=== PATIENT | male | born 1975 | race Caucasian/White ===

== ENCOUNTER 2018-06-27 20:21 | Emergency (ER) | payer MEDICAID ==
[2018-06-27] MEDS ORDERED: Tylenol #3 Tablet PO ONE (20:53)
--- NOTE | 2018-06-27 20:56 | ERPHSYRPT ---
- History of Present Illness Time Seen by Provider: 06/27/18 20:50 Source: patient Exam Limitations: clinical condition Patient Subjective Stated Complaint: Left foot/ankle injury Triage Nursing Assessment: Patient brought back to ED via w/c and transferred to bed per self. Patient A+O X 3. Patient's skin pink, warm and dry. Patient complains of left ankle injury after carrying a couch down stairs when left foot went in a hole causing his ankle to twist Wednesday night. Patient complains of pain 8/10 to left ankle. pedal pulse noted. Left foot outer ankle noted to be swollen, bruised and painful. Physician History: PATIENT TWISTED HIS LEFT ANKLE WHILE MOVING FURNITURE DOWN STAIRS. HAS PAIN OVER OUTER ASPECT OF LEFT ANKLE. PAIN UPON WEIGHT BEARING. Method of Injury: twisted Occurred: this afternoon Quality: constant Severity of Pain-Max: moderate Severity of Pain-Current: moderate Lower Extremities Pain: ankle: left Modifying Factors: Improves With: movement Associated Symptoms: unable to bear weight Allergies/Adverse Reactions: No Known Drug Allergies Allergy (Verified 06/27/18 20:31) Hx Tetanus, Diphtheria Vaccination/Date Given: Yes (ONE YEAR AGO) Hx Influenza Vaccination/Date Given: No Hx Pneumococcal Vaccination/Date Given: No Immunizations Up to Date: Yes - Review of Systems Constitutional: No Fever, No Chills Eyes: No Symptoms Ears, Nose, & Throat: No Symptoms Respiratory: No Cough, No Dyspnea Cardiac: No Chest Pain, No Edema, No Syncope Abdominal/Gastrointestinal: No Abdominal Pain, No Nausea, No Vomiting, No Diarrhea Genitourinary Symptoms: No Dysuria Musculoskeletal: Injury, Joint Pain, Joint Swelling, No Back Pain, No Neck Pain Skin: No Rash Neurological: No Dizziness, No Focal Weakness, No Sensory Changes Psychological: No Symptoms Endocrine: No Symptoms All Other Systems: Reviewed and Negative - Past Medical History Pertinent Past Medical History: Yes Neurological History: No Pertinent History ENT History: No Pertinent History Cardiac History: No Pertinent History Respiratory History: No Pertinent History Endocrine Medical History: No Pertinent History Musculoskeletal History: Fractures GI Medical History: No Pertinent History History: No Pertinent History Psycho-Social History: No Pertinent History Male Reproductive Disorders: No Pertinent History Other Medical History: L SHOULDER SURGERY AND FX R WRIST - Past Surgical History Past Surgical History: Yes Neuro Surgical History: No Pertinent History Cardiac: No Pertinent History Respiratory: No Pertinent History Gastrointestinal: No Pertinent History Genitourinary: No Pertinent History Musculoskeletal: Orthopedic Surgery Male Surgical History: No Pertinent History Other Surgical History: L SHOULDER SURGERY - Social History Smoking Status: Current every day smoker How long have you smoked: years Exposure to second hand smoke: Yes Drug Use: marijuana Patient Lives Alone: No - Nursing Vital Signs Nursing Vital Signs: Initial Vital Signs Temperature 99.0 F 06/27/18 20:33 Pulse Rate 100 H 06/27/18 20:33 Respiratory Rate 18 06/27/18 20:33 Blood Pressure 154/72 06/27/18 20:33 O2 Sat by Pulse Oximetry 93 L 06/27/18 20:33 Pain Scale Pain Intensity 8 - Physical Exam General Appearance: mild distress Ankle Exam: left ankle: pain, soft tissue tenderness (MODERATE SWELLING OVER LATERAL MALLEOLUS, NO DEFORMITY OR ECCHYMOSIS, NO JOINT LAXITY UPON VARUS/ VALGUS STRESS, NEGATIVE ANTERIOR DRAW SIGN), swelling DTR - Lower Extremities Exam: knee (R): 2+, knee (L): 2+, ankle (R): 2+, ankle ( L): 2+ Neuro/Tendon Exam: normal sensation, normal motor functions SpO2 Interpretation: normal SpO2: 98 - Radiology Exams Left Ankle X-ray Interpretation: Interpreted by me, Negative (SOFT TISSUE SWELLING), No Fracture Ordered Tests: Active Orders 24 hr Category Date Time Status Crutches STAT Care 06/27/18 21:38 Ordered Splint STAT Care 06/27/18 21:37 Ordered ANKLE (3 VIEWS) Stat Exams 06/27/18 20:56 Taken Medication Summary Discontinued Medications Generic Name Dose Route Start Last Admin Trade Name Calderon PRN Reason Stop Dose Admin Acetaminophen/Codeine Phosphate 1 tab 06/27/18 20:53 06/27/18 21:02 Tylenol #3 Tablet PO 06/27/18 20:54 1 tab STAT ONE Administration Acetaminophen/Codeine Phosphate Confirm 06/27/18 21:01 Tylenol #3 Tablet Administered 06/27/18 21:02 Dose 1 tab .ROUTE .STK-MED ONE - Progress Progress Note: 06/27/18 21:42 TYLENOL #3 ORALLY, APPLICATION VELCRO SPLINT AND CRUTCHES - Departure Departure Disposition: Home Clinical Impression: LEFT ANKLE STRAIN Condition: Stable Critical Care Time: No Referrals: JOSE ELIAS DWYER MD [ACTIVE STAFF] - Additional Instructions: AMBULATE USING CRUTCHES NONWEIGHT BEARING LEFT FOOT FOR 4-5 DAYS. WEAR VELCRO SPLINT FOR COMFORT, MAY REMOVE TO APPLY ICE WITH ELEVATION OF FOOT, EVERY 4 HOURS, 30 MINUTES FOR 48 HOURS. MOTRIN 600MG EVERY 6 HOURS FOR PAIN NEEDED. TYENOL #3 EVERY 6 HOURS FOR SEVERE PAIN. CONSULT YOUR PRIMARY CARE PROVIDER FOR FOLLOWUP IN 1 WEEK. Prescriptions: Codeine Phosphate/APAP #3 [Tylenol #3 Tablet] 1 tab PO Q6H PRN PRN #8 tablet PRN Reason: Pain Ibuprofen 600 mg PO Q6H PRN PRN #20 tablet PRN Reason: Pain
[2018-06-27] MEDS ORDERED: Tylenol #3 Tablet ONE (21:01)
[2018-06-27 21:48] VITALS: O2SAT 98
[2018-06-27 22:09] VITALS: BP 156/88; PULSE 66
--- NOTE | 2018-06-29 11:09 | XRAY ---
Exam: 3 view left ankle series from 06/27/2018. Comparison: None. Indication: 42-year-old male fell 2 days ago, complains of pain and swelling. Findings: AP, oblique, and lateral images of the left ankle were obtained. I see moderate soft tissue swelling overlying the lateral malleolus. I believe there is a subtle cortical step-off deformity of the distal end of the left fibula suggesting a minimal avulsion fracture injury at this site. This is best appreciated on the AP image. The distal left tibia appears intact. The left ankle mortise appears unremarkable. The base of the left fifth metatarsal appears intact. I cannot exclude a minimal anterior left ankle joint effusion on the lateral radiograph. Impression: 1. There is moderate soft tissue swelling overlying the lateral malleolus of the left ankle. In addition, I believe there is a subtle transverse avulsion fracture injury at the distal end of the left fibula. 2. The distal left tibia appears intact. Note: I called this report to the emergency Department at 11:00 AM on 06/29/2018.
== END 2018-06-27 22:11 | disposition home or self-care (01) ==
LOC: ED 20:21
DX: S96.912A Strain of unspecified muscle and tendon at ankle and foot level, left foot, initial encounter (principal); W50.2XXA Accidental twist by another person, initial encounter; Y93.01 Activity, walking, marching and hiking; Y92.89 Other specified places as the place of occurrence of the external cause; M25.572 Pain in left ankle and joints of left foot
CPT/HCPCS: 73610; 99284; A9270-GY